=== PATIENT | female | born 1955 | race African-American/Black ===

== ENCOUNTER → 2017-05-08 | Outpatient (CLI) | payer MEDICARE, OTHER ==
[~2017-05-08] MED LIST: ATIVAN 1MG T1 MG/TAB PO; CIPRO 500MG TA500 MG PO; COUMADIN 2MG2 MG/TAB PO; COUMADIN 5MG5 MG/TAB PO; DESENEX TP; DILANTIN 100MG100 MG PO; DILANTIN100 MG PO; FLAGYL500 MG PO; FOLIC ACID 11 MG/TA1 PO; FOLIC ACID1 MG PO; HEPARIN; HYDROCHLOR50 MG PO; INVEGA6 MG PO; IRON325 M2 PO; K-DUR 10 MEQ T10 MEQ PO; K-DUR 2020 MEQ PO; KLOR-CON20 MEQ PO; LEXAPRO 10MG10 MG PO; LEXAPRO10 MG PO; LOVENOX 4040 MG/0.4 SQ; LYRICA 100MG C100 MG PO; LYRICA 150MG C150 MG PO; LYRICA 50MG CAP50 MG PO; MAG-OX 400400 MG/TAB PO; MEGACE 40MG40 MG/TAB; MEGACE20 MG PO; MICARDIS20 MG PO; MIRALAX PA17 GM/Dose; MIRALAX PA17 GM/Dose PO; NEXIUM 20MG20 MG PO; NORCO 325 MG-51 TAB PO; OYSTER SHELL C500 M3 PO; OYSTER SHELL C500 MG PO; PRINIVIL5 MG PO; PROAIR HFA0.09 MG/AC IH; PROTONIX20 MG PO; PROVENTIL0.09 MG/A1 IH; REMERON30 MG PO; RT ADVAIR HFA 1112 G IH; SYNTHROID 0.0.025 MG PO; THIAMINE HCL50 MG PO; TYLENOL 325MG325 MG PO; VITAMIN B1 50 MG; VITAMIN C500 MG PO; VITAMIN D 1001000 IU PO; ZESTRIL 5MG5 MG PO; ZOCOR 10MG10 MG PO; ZOCOR10 MG PO
== END ==
LOC: COL.RAD 10:55
DX: C32.2 Malignant neoplasm of subglottis (principal); C78.01 Secondary malignant neoplasm of right lung; K76.9 Liver disease, unspecified; D73.89 Other diseases of spleen
CPT/HCPCS: Q9967

== ENCOUNTER → 2018-02-02 | Outpatient (CLI) | payer MEDICARE, OTHER | LOC: COL.RAD 09:00 | DX: C32.2 Malignant neoplasm of subglottis (principal) ==

== ENCOUNTER → 2018-02-07 | Outpatient (CLI) | payer MEDICARE, OTHER | LOC: COL.RAD 11:17 | DX: C32.2 Malignant neoplasm of subglottis (principal); J98.4 Other disorders of lung; I25.10 Atherosclerotic heart disease of native coronary artery without angina pectoris; D73.89 Other diseases of spleen; K76.9 Liver disease, unspecified; S32.020A Wedge compression fracture of second lumbar vertebra, initial encounter for closed fracture; S32.030A Wedge compression fracture of third lumbar vertebra, initial encounter for closed fracture; M48.061 Spinal stenosis, lumbar region without neurogenic claudication; Z98.890 Other specified postprocedural states | CPT/HCPCS: Q9967 ==

== ENCOUNTER 2018-12-13 10:39 | Observation (INO) | payer MEDICARE, OTHER ==
[~2018-12-13] VITALS: Ht 177.8 cm; Wt 81.6 kg
[2018-12-13 12:56] LABS: BASO % 0.2 % (0.0-2.0); EOS % 0.3 % (0-4.0); GRAN # 6.7 (1.4-6.5); GRAN % 70.3 % (42.2-75.2); HEMATOCRIT 40.3 % (37.0-47.0); HEMOGLOBIN 13.4 g/dl (12.5-16.0); LYMPH # 1.8 (1.2-3.4); MEAN CELL VOLUME 99 fl (80.0-100.0); MEAN CORPUSCULAR HEMOGLOBIN 33 pg (27.0-31.0); MEAN CORPUSCULAR HGB CONC 33 g/dl (33.0-37.0); MEAN PLATELET VOLUME 10.7 fl (7.4-10.4); MONO # 0.9 (0.1-0.6); MONO % 9.5 % (1.7-9.3); PLATELET COUNT 261 K/mm3 (130-400); RED BLOOD COUNT 4.07 M/mm3 (4.10-5.30); REDCELL DISTRIBUTION WIDTH-CV 15.9 % (11.5-14.5)
[2018-12-13 13:04] LABS: INR 1.7 (0.8-3.0); PROTHROMBIN TIME 20.2 SECONDS (9.7-12.8)
[2018-12-13 13:07] LABS: ALANINE AMINOTRANSFERASE < 6 U/L (9-52); ALBUMIN 3.5 gm/dL (3.5-5.0); ALKALINE PHOSPHATASE 83 U/L (50-136); ANION GAP 5 mmol/L (7-16); AST,SGOT 20 U/L (15-37); BILIRUBIN,TOTAL 0.4 mg/dL (0.0-1.0); BLOOD UREA NITROGEN 18 mg/dL (7-17); CALCIUM 9.6 mg/dL (8.4-10.2); CARBON DIOXIDE 29 mmol/L (22-30); CHLORIDE 106 mmol/L (98-107); CREATININE, serum 1.24 (0.52-1.25); GLUCOSE 85 mg/dL (74-106); POTASSIUM 3.7 mmol/L (3.4-5.0); SODIUM 140 mmol/L (137-145); TOTAL PROTEIN 6.8 gm/dL (6.4-8.2)
[2018-12-13 13:18] LABS: TROPONIN-I 0.014 ng/mL (0.000-0.035)
[2018-12-13 16:27] LABS: COLLECTION METHOD CLEAN CATCH
[2018-12-13] MEDS ORDERED: LASIX 20MG TABL20 MG PO (16:28)
[2018-12-13] MEDS ORDERED: XARELTO20 MG PO (16:29)
[2018-12-13] MEDS ORDERED: K-TAB10 PO (16:29)
[2018-12-13] MEDS ORDERED: B-121000 MCG PO (16:31)
[2018-12-13 16:38] LABS: PH 7 (5-8); URINE APPEARANCE Clear; URINE BACTERIA Rare /hpf; URINE BILIRUBIN Negative (NEGATIVE); URINE BLOOD Negative (NEGATIVE); URINE COLOR Yellow; URINE GLUCOSE Negative (NEGATIVE); URINE KETONE Negative (NEGATIVE); URINE LEUKOCYTE ESTERASE Negative (NEGATIVE); URINE NITRATE Negative (NEGATIVE); URINE PROTEIN(semi-quant) Negative (NEGATIVE); URINE UROBILINOGEN Negative (NEGATIVE)
[2018-12-13 16:45] VITALS: BP 119/57; PULSE 83; TEMP 99.1
--- NOTE | 2018-12-13 19:13 | NUR ---
PT ADMITTED TO FLOOR. HAS BEEN SLEEPING SINCE ADMITTED TO FLOOR. NOTED OPEN AREA AND SOME DRAINAGE TO RT FOOT. NO CONSERNS OR ISSUES VOICED.
[2018-12-13 19:26] VITALS: BP 114/71; PULSE 99; TEMP 98.6
--- NOTE | 2018-12-13 19:31 | NUR ---
Report received from JW Kraft.
--- NOTE | 2018-12-13 21:30 | NUR ---
Resting in bed. Patient pulled INT to right wrist out. Restarted in right upper arm. Patient incontinent of urine. Cares provided. Assessment complete. Lungs clear. Heart sounds normal. Bowels active-colostomy stoma pink. Pulses present throughout. Bilateral lower leg edema +2 with edema in feet +4. Left superior foot wound present measuring 5cm x 7cm. Blackish crusting present and wheeping yellowish drainage at this time. Left lower extremity appears reddened at this time. Patient denies any pain including in lower extremities. Will continue to monitor. Call light in reach.
[2018-12-13 23:10] VITALS: BP 139/52; PULSE 95; TEMP 99
[2018-12-14 03:14] VITALS: BP 119/63; PULSE 66
--- NOTE | 2018-12-14 06:28 | NUR ---
Patient incontinent throughout night. Care provided Q2H and PRN. Patient left foot elevated on pillows throughout night. Otherwise uneventful. Resting in bed this AM. Brief dry at this time. Call light in reach.
[2018-12-14 07:05] LABS: BASO % 0.3 % (0.0-2.0); EOS % 0.2 % (0-4.0); GRAN # 7.8 (1.4-6.5); GRAN % 76.6 % (42.2-75.2); HEMATOCRIT 40.7 % (37.0-47.0); HEMOGLOBIN 13.4 g/dl (12.5-16.0); LYMPH # 1.4 (1.2-3.4); LYMPH % 13.3 % (20.0-51.0); MEAN CELL VOLUME 98 fl (80.0-100.0); MEAN CORPUSCULAR HEMOGLOBIN 32 pg (27.0-31.0); MEAN CORPUSCULAR HGB CONC 33 g/dl (33.0-37.0); MEAN PLATELET VOLUME 10.9 fl (7.4-10.4); MONO # 0.9 (0.1-0.6); MONO % 8.8 % (1.7-9.3); PLATELET COUNT 262 K/mm3 (130-400); RED BLOOD COUNT 4.14 M/mm3 (4.10-5.30)
[2018-12-14 07:19] LABS: CALCIUM 9.6 mg/dL (8.4-10.2); CREATININE, serum 1.08 (0.52-1.25); MAGNESIUM 1.6 mg/dL (1.6-2.3); POTASSIUM 3.4 mmol/L (3.4-5.0)
--- NOTE | 2018-12-14 07:19 | NUR ---
Report given to JW Kraft
[2018-12-14 07:39] VITALS: BP 126/55; PULSE 87; TEMP 99.1
[2018-12-14] MEDS ORDERED: MAG-OX 400400 MG/TAB PO (09:22)
[2018-12-14] MEDS ORDERED: MEGACE ORAL40 MG/ML PO (09:23)
[2018-12-14] MEDS ORDERED: VITAMIN C500 MG PO (09:24)
--- NOTE | 2018-12-14 09:25 | NUR ---
ELEUTERIO met with the patient to discuss discharge plan. The patient lives in [place] with her , Benitez (ph#[phone]). She states that she has two children, that they live in [place] and [place]. She reports independence with ADLs and has a cane, walker, and wheelchair. She states she does not use any of the assistive devices in the home. The patient's primary care provider is Dr. Campbell at [facility] and she was unsure if her got her meds on [facility]. ELEUTERIO contacted the patient's , Benitez, and confirmed that the patient receives her meds on [facility]. The patient's reports no difficulties obtaining her meds. The patient does not have advanced directives in EMR, but she states that she does have them completed and that her is her DPOA-HC. The patient plans to return home with her upon discharge. No other identified needs at this time.
--- NOTE | 2018-12-14 10:00 | NUR ---
PT NOT GETTING UP TO VOID THIS SHIFT. THIS NURSE AND PARKS WORKER HAD TO CHANGE PT IN BED DUE TO INCONTINANCE. PT TAKEN IN BREAKFAST BY WHEN HE ARRIVED. PROVIDER NOTIFIED PT AND ABOUT DISCHARGE. PT THEN CHANGED CLOTHES IN ROOM WITHOUT STAFF ASSISTANCE, POSSIBLY HAD HELPED.
--- NOTE | 2018-12-14 11:00 | NUR ---
PT REFUSING TO WORK WITH PT/OT, PT REFUSED TO WEAR ALEXANDRU HOSE. PT/OT ATTEMPTED TO ASSIST PT TO WEAR ALEXANDRU HOSE, PT WAS MAD AND REFUSED THEIR SERVICES.
[2018-12-14] MEDS ORDERED: IRON TABLETS325 MG PO (11:15)
[2018-12-14] MEDS ORDERED: CEPHALEXIN500 M1 PO (12:23)
[2018-12-14] MEDS ORDERED: SYNTHROID0.125 MG/T PO (12:24)
--- NOTE | 2018-12-14 13:20 | NUR ---
PT ESCORTED OUT OF FACILITY BY PLASTIC MOLDER VIA W/C, CARRYING BELONGINGS AND ESCORING OUT WELL.
--- NOTE | 2018-12-14 13:45 | NUR ---
PT/OT were ordered and attempted to meet with the patient. The patient declined working with them. The patient's then arrived at the hospital. SW followed up with the patient and patient's . The patient's reports that the patient gets around fine at home and that he helps her with bathing and using the restroom. SW discussed home health services for PT/OT and jail for medication management, due to the patient and patient's reporting not being sure of what meds the patient was on during admission. The patient's reports that they are not interested in any home health services and that he is able to help to get the patient's meds and set them up for her. SW informed the patient's nurse practitioner. The patient is to discharge back home with her today, 12/14. No additional needs at this time.
[2018-12-14] MEDS ORDERED: REQUIP0.25 MG PO (14:32)
== END 2018-12-14 13:20 | disposition home or self-care (01) ==
LOC: COL.ER 10:39 → MEDICAL 14:31
PROVIDERS: Emergency Medicine; Nurse Practitioner Family; ADMIT Hospitalist
DX: I82.493 Acute embolism and thrombosis of other specified deep vein of lower extremity, bilateral (principal); E03.9 Hypothyroidism, unspecified; C14.0 Malignant neoplasm of pharynx, unspecified; L03.116 Cellulitis of left lower limb; Z86.711 Personal history of pulmonary embolism; Z92.3 Personal history of irradiation; Z92.21 Personal history of antineoplastic chemotherapy; Z93.3 Colostomy status; D50.9 Iron deficiency anemia, unspecified; K21.9 Gastro-esophageal reflux disease without esophagitis; F32.9 Major depressive disorder, single episode, unspecified; Z79.899 Other long term (current) drug therapy; Z98.51 Tubal ligation status; F17.210 Nicotine dependence, cigarettes, uncomplicated; Z79.01 Long term (current) use of anticoagulants; J44.9 Chronic obstructive pulmonary disease, unspecified; I10 Essential (primary) hypertension; G62.9 Polyneuropathy, unspecified; E87.6 Hypokalemia; E83.42 Hypomagnesemia; R07.9 Chest pain, unspecified; G25.81 Restless legs syndrome; Z82.49 Family history of ischemic heart disease and other diseases of the circulatory system; E78.5 Hyperlipidemia, unspecified; R41.89 Other symptoms and signs involving cognitive functions and awareness
CPT/HCPCS: G0378; J1940; J2543; J3475

== ENCOUNTER 2019-07-24 09:00 | Outpatient (RCR) | payer MEDICARE, OTHER ==
[~2019-07-24 09:00] MED LIST changes: +B-121000 MCG PO; +CEPHALEXIN500 M1 PO; +IRON TABLETS325 MG PO; +K-TAB10 PO; +LASIX 20MG TABL20 MG PO; +MEGACE ORAL40 MG/ML PO; +REQUIP0.25 MG PO; +SYNTHROID0.125 MG/T PO; +XARELTO20 MG PO
== END 2019-07-25 | disposition home or self-care (01) ==
LOC: WSPT
DX: L02.612 Cutaneous abscess of left foot (principal)

== ENCOUNTER 2019-10-17 09:45 | Outpatient (RCR) | payer MEDICARE, OTHER | END 2019-11-05 | disposition home or self-care (01) | LOC: WSPT | DX: L02.612 Cutaneous abscess of left foot (principal); R60.0 Localized edema ==

== ENCOUNTER 2020-10-07 13:45 | Outpatient (RCR) | payer MEDICARE, OTHER | END 2020-11-20 08:54 | disposition home or self-care (01) | LOC: WSPT 13:45 | DX: I89.0 Lymphedema, not elsewhere classified (principal) ==

== ENCOUNTER 2021-01-13 13:49 | Outpatient (RCR) | payer MEDICARE, OTHER | END 2021-03-19 | disposition home or self-care (01) | LOC: WSST | DX: R13.10 Dysphagia, unspecified (principal) ==

== ENCOUNTER → 2021-01-19 | Outpatient (CLI) | payer MEDICARE, OTHER | LOC: COL.RAD 12:03 | DX: R13.10 Dysphagia, unspecified (principal) ==